=== PATIENT | male | born 1970 | race Caucasian/White ===

== ENCOUNTER 2016-04-23 14:16 | Inpatient (IN) | payer MEDICAID, OTHER ==
[2016-04-23 14:23] VITALS: BMI 30.7
[2016-04-23 15:22] LABS: BASO # 0.1 K/uL (0.0-0.2); EOS # 0.1 K/uL (0.0-0.7); EOS % 1.1 % (0.0-4.0); HEMATOCRIT 37.1 % (35.0-51.0); LYMPH # 1.7 K/uL (1.0-4.3); LYMPH % 14.1 % (20.0-40.0); MEAN CELL VOLUME 89.7 fL (80.0-94.0); MEAN CORPUSCULAR HEMOGLOBIN 30.1 pg (27.0-31.0); MEAN CORPUSCULAR HGB CONC 33.6 g/dL (33.0-37.0); MEAN PLATELET VOLUME 7.2 fL (7.2-11.7); MONO # 0.7 K/uL (0.0-0.8); MONO % 5.7 % (0.0-10.0); RED CELL DISTRIBUTION WIDTH 13.3 % (11.5-14.5); WHITE BLOOD COUNT 11.8 K/uL (4.8-10.8)
[2016-04-23 15:32] LABS: CHLORIDE 102 mmol/L (98-107); POTASSIUM 3.8 mmol/L (3.6-5.2); RBC URINE 3 /hpf (0-3); SODIUM 141 mmol/L (132-148); URINE BILIRUBIN NEGATIVE (NEGATIVE); URINE BLOOD NEGATIVE (NEGATIVE); URINE COLOR Amber (YELLOW); URINE GLUCOSE (UA) NORMAL (Normal); URINE KETONE TRACE mg/dL (NEGATIVE); URINE LEUKOCYTE ESTERASE NEG Leu/uL (Negative); URINE PROTEIN 1+ mg/dL (NEGATIVE); WBC URINE 3 /hpf (0-5)
[2016-04-23 15:34] LABS: GFR AFRICAN-AMERICAN > 60
[2016-04-23 15:35] LABS: ALB/GLOB RATIO 0.9 (1.0-2.1); ALKALINE PHOSPHATASE 99 U/L (38-126); ALT/SGPT 33 U/L (21-72); AST/SGOT 25 U/L (17-59); BILIRUBIN,TOTAL 0.5 mg/dL (0.2-1.3); BLOOD UREA NITROGEN 11 mg/dL (9-20); CALCIUM 8.9 mg/dl (8.6-10.4); CARBON DIOXIDE 24 mmol/L (22-30); GLUCOSE,RANDOM 96 mg/dL (75-110); TOTAL PROTEIN 7.8 g/dL (6.3-8.3)
[2016-04-23 15:36] LABS: ALCOHOL SERUM < 10 mg/dl (0-10)
--- NOTE | 2016-04-23 16:27 | C.PDOC ---
History Of Present Illness 45 year old patient, with a history of asthma, presents to the emergency department complaining of suicidal ideation. Patient is an opiate dependent. He went to [facility], yesterday by his own choice. Patient is trying to quit Heroin. He states he is in current withdrawal. Patient complains of nausea, body aches, headache, and chills. Patient states he has "no plan right now" to kill himself. He has a history of cutting himself. He has made no serious attempts to hurt himself. Patient denies any fever, shortness of breath, chest pain, or vomiting. Time Seen by Provider: 04/23/16 14:44 Chief Complaint (Nursing): Psychiatric Evaluation History Per: Patient History/Exam Limitations: no limitations Onset/Duration Of Symptoms: Days (1) Current Symptoms Are (Timing): Still Present Suicide/Self Injury Attempted (Context): None Modifying Factor(s): None Severity: None Pain Scale Rating Of: 0 Associated Symptoms: Depression, Suicidal Thoughts Involuntary Hold By: None Recent travel outside of the [place]: No Past Medical History Reviewed: Historical Data, Nursing Documentation, Vital Signs Vital Signs: Last Vital Signs Temp 99.1 F 04/23/16 14:26 Pulse 92 H 04/23/16 14:26 Resp 18 04/23/16 14:26 BP 145/95 H 04/23/16 14:26 Pulse Ox 98 04/23/16 16:51 - Medical History PMH: Asthma, Pneumonia (''Walking'') Surgical History: Appendectomy Family History: States: Unknown Family Hx - Social History Hx Alcohol Use: No Hx Substance Use: Yes - Immunization History Hx Tetanus Toxoid Vaccination: No Hx Influenza Vaccination: Yes (2016) Hx Pneumococcal Vaccination: No Review Of Systems Except As Marked, All Systems Reviewed And Found Negative. Constitutional: Positive for: Chills, Other (body aches). Negative for: Fever Cardiovascular: Negative for: Chest Pain Respiratory: Negative for: Shortness of Breath Gastrointestinal: Positive for: Nausea. Negative for: Vomiting Neurological: Positive for: Headache Psych: Positive for: Suicidal ideation Physical Exam - Physical Exam Appears: Non-toxic, No Acute Distress Skin: Warm, Dry Head: Atraumatic, Normacephalic Eye(s): bilateral: Normal Inspection, PERRL, EOMI Ear(s): Bilateral: Normal Nose: Normal Oral Mucosa: Moist Throat: Normal Neck: Normal ROM, Supple Chest: Symmetrical Cardiovascular: Rhythm Regular Respiratory: Normal Breath Sounds, No Rales, No Rhonchi, No Wheezing Gastrointestinal/Abdominal: Soft, No Tenderness, No Guarding, No Rebound Back: Normal Inspection, No CVA Tenderness Extremity: Normal ROM Neurological/Psych: Oriented x3, Normal Speech, Normal Cognition Gait: Steady ED Course And Treatment - Laboratory Results Result Diagrams: 04/23/16 15:15 04/23/16 15:15 O2 Sat by Pulse Oximetry: 98 (RA) Pulse Ox Interpretation: Normal Progress Note: Plan: Labs. -Reassess and disposition Disposition Counseled Patient/Family Regarding: Studies Performed, Diagnosis - Disposition Disposition: HOSPITALIZED Disposition Time: 17:17 Condition: GUARDED - Clinical Impression Clinical Impression: Moderate major depression, single episode, Opioid abuse - Scribe Statement The provider has reviewed the documentation as recorded by the Scribe Nolvia Reyes Provider Attestation: All medical record entries made by the Scribe were at my direction and personally dictated by me. I have reviewed the chart and agree that the record accurately reflects my personal performance of the history, physical exam, medical decision making, and the department course for this patient. I have also personally directed, reviewed, and agree with the discharge instructions and disposition. Decision To Admit - Pt Status Changed To: Hospital Disposition Of: Inpatient - Admit Certification Admit to Inpatient:: After my assessment, the patient will require hospitalization for at least two midnights. This is because of the severity of symptoms shown, intensity of services needed, and/or the medical risk in this patient being treated as an outpatient. - InPatient: Physician Admission Certification: I certify that this patient requires 2 or more midnights of care for the following reason:: suicidal - . Bed Request Type: Psychiatry Patient Diagnosis: Moderate major depression, single episode, Opioid abuse
[2016-04-24] MEDS: Magnesium Hydroxide Susp 30 ml UD PO SCH ×2 (09:43→17:28)
[2016-04-24] MEDS: buPROPion 150 mg/24 Hours XL Tab PO SCH (10:40)
--- NOTE | 2016-04-24 12:47 | PCM.PSYCH ---
Initial Psychiatric Evaluation - Initial Psychiatric Evaluation Type of Admission: Voluntary Legal Status: Capacity History of Present Illness and Precipitating Events: This is a 45 years old male who is currently living with his girlfriend , and currently working was admitted yesterday because of depressed mood, auditory hallucinations, opiate abuse and suicidal ideation with plan to overdose. Patient reports a long history of abusing heroin. Patient has been admitted few times in the psychiatric hospitals. He was discharged from [facility] last year, with [facility] As per the patient couple months ago he stopped taking medication and relapsed on heroin. He started injecting 10-12 bags on a daily basis. Day before yesterday he injected almost 10 bags of heroin , became increasingly depressed and developed suicidal ideation so he came to the hospital. Patient reports of increasingly depressed mood, at times feelings of hopelessness and helplessness, poor sleep and poor appetite. He also reports at times irritability, and agitation. Patient reports auditory hallucinations, telling him to end it all and to kill himself. Patient reports of persecutory delusions that someone is following him, however he denies any visual hallucinations. Patient reports withdrawal symptoms from heroin including hot and cold sweats, abdominal cramps, anxiety, headaches and nausea. He denies drinking or any other substance abuse. Medical history Asthma Current Medications: Active Medications Generic Name Dose Route Start Last Admin Trade Name Freq PRN Reason Stop Dose Admin Benztropine Mesylate 1 mg 04/23/16 18:33 04/23/16 19:50 Cogentin PO 1 mg Q6 PRN Administration EPS Bupropion HCl 150 mg 04/24/16 10:00 04/24/16 10:40 Wellbutrin Xl PO 150 mg DAILY GUMARO Administration Haloperidol 5 mg 04/23/16 18:33 04/23/16 19:50 Haldol PO 5 mg Q6 PRN Administration Agitation Hydroxyzine HCl 50 mg 04/23/16 18:33 04/24/16 11:09 Atarax PO 50 mg Q6 PRN Administration Anxiety Ibuprofen 600 mg 04/23/16 18:33 Motrin Tab PO Q6 PRN Pain, moderate (4-7) Magnesium Hydroxide 30 ml 04/23/16 20:30 04/24/16 09:43 Milk Of Magnesia PO 04/25/16 20:31 Not Given BID GUMARO Methadone HCl 10 mg 04/25/16 10:00 Methadone PO 04/27/16 09:59 DAILY GUMARO Taper Nicotine 1 patch 04/24/16 10:00 04/24/16 09:45 Nicoderm Cq TD 1 patch DAILY GUMARO Administration Ondansetron HCl 4 mg 04/23/16 20:25 Zofran Tab PO Q8 PRN Nausea/Vomiting Trazodone HCl 50 mg 04/23/16 18:33 04/23/16 21:05 Desyrel PO 50 mg HS PRN Administration Insomnia Past Psychiatric History - Past Psychiatric History Previous Treatment History: Inpatient Pertinent Medical Hx (Current Medical&Sleep Prob, Allergies): Allergies Allergy/AdvReac Type Severity Reaction Status Date / Time No Known Allergies Allergy Verified 04/23/16 14:23 buPROPion XL [Wellbutrin] 150 mg PO DAILY 04/23/16 Review of Systems - Review of Systems All systems: reviewed and no additional remarkable complaints except - Psychiatric Psychiatric: Anxiety, Irritability, Suicidal Ideation Mental Status Examination - Personal Presentation Personal Presentation: Looks stated age - Affect Affect: Constricted, Depressed - Motor Activity Motor Activity: Calm - Reliability in Providing Information Reliability in Providing Information: Good - Speech Speech: Organized - Mood Mood: Depressed, Anxious - Formal Thought Process Formal Thought Process: No Impairment - Obsessions/Compulsions Obsessions: No Compulsions: No - Cognitive Functions Orientation: Person, Place, Situation, Time Sensorium: Alert Attention/Concentration: Attentive Abstract Thinking: [place] Estimate of Intelligence: Below average Judgement: Imparied, as evidence by: Poor judgement, Imparied, as evidence by: Lack of insight into illness - Risk Risk: Suicidal, Withdrawal, Diminished functioning - Strength & Assets Inventory Strength & Assets Inventory: Cooperative - Limitations Limitations: Living alone DSM 5 DX - DSM 5 DSM 5 Diagnosis: Major depressive disorder recurrent severe with psychotic features CBT Psychoeducation Supportive therapy, individual therapy Start Zoloft 50 mg PO daily Start Trazodone 50 mg PO Q HS Opioid use disorder severe CBT Psychoeducation Supportive therapy, individual therapy Use DC for abstinence Opioid withdrawal CBT Psychoeducation Supportive therapy, individual therapy Clonidine when necessary Start Subutex when scoring - Recommended/Plan of Treatment Treatment Recommendations and Plan of Treatment: Major depressive disorder recurrent severe with psychotic features CBT Psychoeducation Supportive therapy, individual therapy Start Zoloft 50 mg PO daily Start Trazodone 50 mg PO Q HS Opioid use disorder severe CBT Psychoeducation Supportive therapy, individual therapy Use DC for abstinence Opioid withdrawal CBT Psychoeducation Supportive therapy, individual therapy Clonidine when necessary Start Subutex when scoring Asthma Monitor signs and symptoms Continue prescribed medications
[2016-04-24 20:18] LABS: BASO # 0.1 K/uL (0.0-0.2); BASO % 0.8 % (0.0-2.0); EOS # 0.4 K/uL (0.0-0.7); EOS % 4.1 % (0.0-4.0); LYMPH # 3.3 K/uL (1.0-4.3); LYMPH % 33.8 % (20.0-40.0); MEAN CORPUSCULAR HEMOGLOBIN 30.9 pg (27.0-31.0); MEAN CORPUSCULAR HGB CONC 34.4 g/dL (33.0-37.0); MEAN PLATELET VOLUME 7.1 fL (7.2-11.7); MONO # 0.8 K/uL (0.0-0.8); MONO % 8.5 % (0.0-10.0); RED CELL DISTRIBUTION WIDTH 13.7 % (11.5-14.5); WHITE BLOOD COUNT 9.7 K/uL (4.8-10.8)
[2016-04-24] MEDS: Albuterol HFA 90 mcg/actuation (8 g) INH PRN (21:56)
[2016-04-24] MEDS ORDERED: Alum-Mag Hydrox-Simethicone Susp (30 mL) PO PRN (22:20)
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
[2016-04-25] MEDS: Magnesium Hydroxide Susp 30 ml UD PO SCH ×2 (09:52→17:53)
[2016-04-25] MEDS: POLYETHYLENE GLYCOL 3350 17 GM/Dose PACKET PO SCH (09:52)
[2016-04-25] MEDS: buPROPion 150 mg/24 Hours XL Tab PO SCH (09:57)
[2016-04-25] MEDS: Pantoprazole 20 mg EC Tab PO SCH (09:57)
[2016-04-25] MEDS: Albuterol HFA 90 mcg/actuation (8 g) INH PRN (14:30)
--- NOTE | 2016-04-25 15:35 | PCM.PYCHPN ---
Psychiatric Progress Note - Psychiatric Progress Note Patient seen today, length of contact: 17 min Patient Chief Complaint: I'm feeling very depressed Problems Identified/Issues Discussed: Patient seen and evaluated, chart reviewed and discussed with the nurse. As per the staff, patient still appears isolated, depressed and withdrawn. Patient still reports depressed mood and reports at times feelings of hopelessness or helplessness. He reports withdrawal symptoms including cramps, back pain and sweating. He also reports of hearing voices and seeing things. He is taking medication and denies any side effects. Supportive therapy and psychoeducation were given. Medication Change: Yes (start Haldol) Medical Record Reviewed: Yes Mental Status Examination - Cognitive Function Orientation: Person, Place, Situation, Time Memory: Intact Attention: WNL Concentration: Poor Association: Loose Fund of Knowledge: WNL - Mood Mood: Depressed, Anxious - Affect Affect: Constricted, Depressed - Speech Speech: Soft - Formal Thought Process Formal Thought Process: Hallucinations, Delusions, Paranoia, Loosening of associations - Suicidal Ideation Suicidal Ideation: No - Homicidal Ideation Homicidal Ideation: No Goal/Treatment Plan - Goal/Treatment Plan Need for Continued Stay: Discharge may exacerbated symptoms, Severe functional impairment Progress Toward Problem(s) and Goals/Treatment Plan: Major depressive disorder recurrent severe with psychotic features CBT Psychoeducation Supportive therapy, individual therapy D/C Zoloft 50 mg PO daily Trazodone 50 mg PO Q HS start Wellbutrin Opioid use disorder severe CBT Psychoeducation Supportive therapy, individual therapy Use DC for abstinence Opioid withdrawal CBT Psychoeducation Supportive therapy, individual therapy Clonidine when necessary Methadone taper Asthma Monitor signs and symptoms Continue prescribed medications - Smoking Cessation Smoking Cessation Initiated: No
--- NOTE | 2016-04-25 15:47 | CP.PCM.PN ---
Addendum entered and electronically signed by Suzanna Mojica DO 04/25/16 15:53: Lidoderm patch ordered PRN for pain. Original Note: <Suzanna Mojica - Last Filed: 04/25/16 15:44> Subjective - Date & Time of Evaluation Date of Evaluation: 04/25/16 Time of Evaluation: 10:30 - Subjective Subjective: Internal medicine progress note for Dr. Poole-Suzanna Mojica, PGY-1 Pt S & E at bedside. Pt reports last BM w/o blood, states that he has occasional blood in stool- does not eat high fiber diet, has not been seen by a dr for this problem before. Has a burning sensation when moving bowels, some abdominal discomfort, poor appetite, often has hard stools, occasionally sees drops of red blood in toilet bowel. Reports intermittent sleep - currently detoxing from heroin. Denies N/V/F/C, CP, SOB, straining to stool. Objective - Vital Signs/Intake and Output Vital Signs (last 24 hours): Temp Pulse Resp BP Pulse Ox 97.9 F 62 18 91/59 L 100 04/25/16 08:29 04/25/16 08:29 04/25/16 08:29 04/25/16 08:29 04/23/16 18:26 - Medications Medications: Current Medications Al Hydrox/Mg Hydrox/Simethicone (Maalox Plus 30 Ml) 30 ml PO BID PRN PRN Reason: Indigestion / Heartburn Albuterol (Ventolin Hfa 90 Mcg/Actuation (8 G)) 1 puff INH RQ6 PRN PRN Reason: Shortness of Breath Last Admin: 04/25/16 14:30 Dose: 1 puff Benztropine Mesylate (Cogentin) 1 mg PO Q6 PRN PRN Reason: EPS Last Admin: 04/23/16 19:50 Dose: 1 mg Bupropion HCl (Wellbutrin Xl) 150 mg PO DAILY [facility] Last Admin: 04/25/16 09:57 Dose: 150 mg Docusate Sodium (Colace) 100 mg PO BID [facility] Last Admin: 04/25/16 09:57 Dose: 100 mg Haloperidol (Haldol) 5 mg PO Q6 PRN PRN Reason: Agitation Last Admin: 04/23/16 19:50 Dose: 5 mg Hydroxyzine HCl (Atarax) 50 mg PO Q6 PRN PRN Reason: Anxiety Last Admin: 04/25/16 14:30 Dose: 50 mg Lorazepam (Ativan) 1 mg PO Q8H PRN PRN Reason: Anxiety Last Admin: 04/24/16 21:38 Dose: 1 mg Magnesium Hydroxide (Milk Of Magnesia) 30 ml PO BID [facility] Stop: 04/25/16 20:31 Last Admin: 04/25/16 09:52 Dose: Not Given Methadone HCl (Methadone) 10 mg PO DAILY [facility] PRN Reason: Taper Stop: 04/27/16 09:59 Last Admin: 04/25/16 09:57 Dose: 10 mg Methadone HCl (Methadone) 5 mg PO DAILY PRN PRN Reason: Opiate reversal Stop: 04/26/16 10:00 Nicotine (Nicoderm Cq) 1 patch TD DAILY [facility] Last Admin: 04/25/16 09:57 Dose: 1 patch Ondansetron HCl (Zofran Tab) 4 mg PO Q8 PRN PRN Reason: Nausea/Vomiting Pantoprazole Sodium (Protonix Ec Tab) 20 mg PO DAILY [facility] Last Admin: 04/25/16 09:57 Dose: 20 mg Polyethylene Glycol (Miralax) 17 gm PO DAILY [facility] Last Admin: 04/25/16 09:52 Dose: Not Given Trazodone HCl (Desyrel) 50 mg PO HS PRN PRN Reason: Insomnia Last Admin: 04/24/16 21:25 Dose: 50 mg - Labs Labs: 04/24/16 19:58 - Constitutional Appears: Non-toxic, No Acute Distress - Head Exam Head Exam: ATRAUMATIC, NORMAL INSPECTION, NORMOCEPHALIC - Eye Exam Eye Exam: EOMI, Normal appearance, PERRL Pupil Exam: NORMAL ACCOMODATION, PERRL - ENT Exam ENT Exam: Mucous Membranes Moist, Normal Exam - Neck Exam Neck Exam: Full ROM, Normal Inspection - Respiratory Exam Respiratory Exam: Clear to Ausculation Bilateral, NORMAL BREATHING PATTERN - Cardiovascular Exam Cardiovascular Exam: REGULAR RHYTHM, +S1, +S2 - Rectal Exam Rectal Exam: Deferred Additional comments: Patient declined DANILO - Extremities Exam Extremities Exam: Full ROM, Normal Inspection - Back Exam Back Exam: Full ROM, NORMAL INSPECTION - Neurological Exam Neurological Exam: Alert, Awake, Oriented x3 - Psychiatric Exam Psychiatric exam: Normal Affect, Normal Mood - Skin Skin Exam: Dry, Intact, Normal Color, Warm Assessment and Plan - Assessment and Plan (Free Text) Assessment: 1. Rectal Bleeding - Hemoglobin 12.4 - stable - Platelets 542 - Recommend d/c Ibuprofen for pain management - Continue pain management per psychiatry as patient being treated in detox for heroine abuse - Malaax 30 ml BID - Protonix 20 mg po daily - Avoid NSAIDS or other medications that can cause GI bleeding - GI consulted 2. Constipation -Continue Colace 100 mg po BID -Continue Miralax po daily 3. Heroine Abuse -Continue management per psychiatry 4. Dispo -Pt refusing DANILO -Mgmt as per psych & GI -No further medical mgmt as this time Please re-consult as needed Thank you for this consult DW attending <Luigi Poole - Last Filed: 04/25/16 16:39> Objective - Vital Signs/Intake and Output Vital Signs (last 24 hours): Temp Pulse Resp BP Pulse Ox 97.9 F 93 H 18 127/87 100 04/25/16 08:29 04/25/16 15:46 04/25/16 08:29 04/25/16 15:46 04/23/16 18:26 - Medications Medications: Current Medications Al Hydrox/Mg Hydrox/Simethicone (Maalox Plus 30 Ml) 30 ml PO BID PRN PRN Reason: Indigestion / Heartburn Albuterol (Ventolin Hfa 90 Mcg/Actuation (8 G)) 1 puff INH RQ6 PRN PRN Reason: Shortness of Breath Last Admin: 04/25/16 14:30 Dose: 1 puff Benztropine Mesylate (Cogentin) 1 mg PO Q6 PRN PRN Reason: EPS Last Admin: 04/23/16 19:50 Dose: 1 mg Bupropion HCl (Wellbutrin Xl) 150 mg PO DAILY [facility] Last Admin: 04/25/16 09:57 Dose: 150 mg Docusate Sodium (Colace) 100 mg PO BID [facility] Last Admin: 04/25/16 09:57 Dose: 100 mg Haloperidol (Haldol) 5 mg PO Q6 PRN PRN Reason: Agitation Last Admin: 04/23/16 19:50 Dose: 5 mg Hydroxyzine HCl (Atarax) 50 mg PO Q6 PRN PRN Reason: Anxiety Last Admin: 04/25/16 14:30 Dose: 50 mg Lidocaine (Lidoderm) 1 ea TD DAILY PRN PRN Reason: Pain, moderate (4-7) Lorazepam (Ativan) 1 mg PO Q8H PRN PRN Reason: Anxiety Last Admin: 04/24/16 21:38 Dose: 1 mg Magnesium Hydroxide (Milk Of Magnesia) 30 ml PO BID [facility] Stop: 04/25/16 20:31 Last Admin: 04/25/16 09:52 Dose: Not Given Methadone HCl (Methadone) 10 mg PO DAILY [facility] PRN Reason: Taper Stop: 04/27/16 09:59 Last Admin: 04/25/16 09:57 Dose: 10 mg Methadone HCl (Methadone) 5 mg PO DAILY PRN PRN Reason: Opiate reversal Stop: 04/26/16 10:00 Nicotine (Nicoderm Cq) 1 patch TD DAILY [facility] Last Admin: 04/25/16 09:57 Dose: 1 patch Ondansetron HCl (Zofran Tab) 4 mg PO Q8 PRN PRN Reason: Nausea/Vomiting Pantoprazole Sodium (Protonix Ec Tab) 20 mg PO DAILY [facility] Last Admin: 04/25/16 09:57 Dose: 20 mg Polyethylene Glycol (Miralax) 17 gm PO DAILY [facility] Last Admin: 04/25/16 09:52 Dose: Not Given Trazodone HCl (Desyrel) 50 mg PO HS PRN PRN Reason: Insomnia Last Admin: 04/24/16 21:25 Dose: 50 mg - Labs Labs: 04/24/16 19:58 Attending/Attestation - Attestation I have personally seen and examined this patient.: Yes I have fully participated in the care of the patient.: Yes I have reviewed all pertinent clinical information, including history, physical exam and plan: Yes Notes (Text): 04/25/16 16:36 Medical Attending: Patient was seen and examined by me. Agree with the above note by the resident. The patient is ambulating in 5E without assistance. The Hgb was also stable as well. He is currently undergoing detox at this time. He reports still having some abdominal pain, possibly from the withdrawl and the process of detox. I explained this to the patient. Will add lidoderm transdermal patch. Avoidng NSAIDs at this time thank you Luigi Poole
[2016-04-25] MEDS: Lidocaine 5% Patch TD PRN (16:52)
[2016-04-26 08:02] LABS: BASO % 0.5 % (0.0-2.0); EOS # 0.4 K/uL (0.0-0.7); EOS % 5.2 % (0.0-4.0); HEMATOCRIT 36.3 % (35.0-51.0); LYMPH # 3.1 K/uL (1.0-4.3); LYMPH % 38.1 % (20.0-40.0); MEAN CELL VOLUME 90.2 fL (80.0-94.0); MEAN CORPUSCULAR HGB CONC 33.3 g/dL (33.0-37.0); MEAN PLATELET VOLUME 7.2 fL (7.2-11.7); MONO # 0.7 K/uL (0.0-0.8); MONO % 8.2 % (0.0-10.0); RED CELL DISTRIBUTION WIDTH 13.5 % (11.5-14.5); WHITE BLOOD COUNT 8.2 K/uL (4.8-10.8)
[2016-04-26] MEDS: Pantoprazole 20 mg EC Tab PO SCH (10:29)
[2016-04-26] MEDS: buPROPion 150 mg/24 Hours XL Tab PO SCH (10:29)
[2016-04-26] MEDS: POLYETHYLENE GLYCOL 3350 17 GM/Dose PACKET PO SCH (10:30)
--- NOTE | 2016-04-26 14:42 | PCM.PYCHPN ---
Psychiatric Progress Note - Psychiatric Progress Note Patient seen today, length of contact: 15 min Patient Chief Complaint: I am feeling depressed Problems Identified/Issues Discussed: Patient seen and evaluated, chart reviewed and discussed with the nurse. As per the staff, patient still appears isolated, depressed and withdrawn. Patient still reports depressed mood and reports at times feelings of hopelessness or helplessness. He reports withdrawal symptoms including cramps, back pain and sweating. However he denies any suicidal ideation or homicidal ideation. He is asking for more pain medications is medical diagnoses and surgeries. He denies any auditory or visual hallucinations or any psychotic symptoms. Supportive therapy and psychoeducation were given. Medication Change: Yes (start Wellbutrin) Medical Record Reviewed: Yes Mental Status Examination - Cognitive Function Orientation: Person, Place, Situation, Time Memory: Intact Attention: WNL Concentration: Poor Association: Loose Fund of Knowledge: WNL - Mood Mood: Depressed, Anxious - Affect Affect: Constricted, Depressed - Speech Speech: Soft - Formal Thought Process Formal Thought Process: Hallucinations, Delusions, Loosening of associations - Suicidal Ideation Suicidal Ideation: No - Homicidal Ideation Homicidal Ideation: No Goal/Treatment Plan - Goal/Treatment Plan Need for Continued Stay: Discharge may exacerbated symptoms, Severe functional impairment Progress Toward Problem(s) and Goals/Treatment Plan: Major depressive disorder recurrent severe with psychotic features CBT Psychoeducation Supportive therapy, individual therapy D/C Zoloft 50 mg PO daily Welbutrin 150 mg PO Daily Haldol 5 mg PO BID Trazodone 50 mg PO Q HS Opioid use disorder severe CBT Psychoeducation Supportive therapy, individual therapy Use [place] for abstinence Opioid withdrawal CBT Psychoeducation Supportive therapy, individual therapy Clonidine when necessary Subutex when scoring Asthma Monitor signs and symptoms Continue prescribed medications - Smoking Cessation Smoking Cessation Initiated: No
[2016-04-26] MEDS: Lidocaine 5% Patch TD PRN (18:33)
[2016-04-27] MEDS: buPROPion 150 mg/24 Hours XL Tab PO SCH (10:23)
[2016-04-27] MEDS: POLYETHYLENE GLYCOL 3350 17 GM/Dose PACKET PO SCH (12:51)
[2016-04-27] MEDS: Pantoprazole 20 mg EC Tab PO SCH (12:51)
--- NOTE | 2016-04-27 14:49 | PCM.PYCHPN ---
Psychiatric Progress Note - Psychiatric Progress Note Patient seen today, length of contact: 17 min Patient Chief Complaint: I'm feeling little better Problems Identified/Issues Discussed: Patient seen and evaluated, chart reviewed and discussed with the nurse. Patient reports improvement in his mood but still reports withdrawal symptoms including cramps, back pain and sweating. He reports adequate improvement in irritability and agitation and voices. He is taking medication and denies any side effects. Supportive therapy and psychoeducation were given. Medication Change: No Medical Record Reviewed: Yes Mental Status Examination - Cognitive Function Orientation: Person, Place, Situation, Time Memory: Intact Attention: WNL Concentration: Poor Association: Loose Fund of Knowledge: WNL (attacks) - Mood Mood: Depressed, Anxious - Affect Affect: Constricted, Depressed - Formal Thought Process Formal Thought Process: Hallucinations, Delusions - Suicidal Ideation Suicidal Ideation: No - Homicidal Ideation Homicidal Ideation: No Goal/Treatment Plan - Goal/Treatment Plan Need for Continued Stay: Discharge may exacerbated symptoms, Severe functional impairment Progress Toward Problem(s) and Goals/Treatment Plan: Major depressive disorder recurrent severe with psychotic features CBT Psychoeducation Supportive therapy, individual therapy Welbutrin 300 mg PO Daily Haldol 5 mg PO BID Trazodone 50 mg PO Q HS Gabapentin 100 mg by mouth 3 times a day Opioid use disorder severe CBT Psychoeducation Supportive therapy, individual therapy Use [place] for abstinence Opioid withdrawal CBT Psychoeducation Supportive therapy, individual therapy Clonidine when necessary Methadone taper Asthma Monitor signs and symptoms Continue prescribed medications - Smoking Cessation Smoking Cessation Initiated: Yes
[2016-04-27] MEDS: Albuterol HFA 90 mcg/actuation (8 g) INH PRN (21:08)
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
[2016-04-28] MEDS: POLYETHYLENE GLYCOL 3350 17 GM/Dose PACKET PO SCH (10:32)
[2016-04-28] MEDS: buPROPion 150 mg/24 Hours XL Tab PO SCH (10:36)
[2016-04-28] MEDS: Pantoprazole 20 mg EC Tab PO SCH (10:36)
--- NOTE | 2016-04-28 11:19 | PCM.PYCHPN ---
Psychiatric Progress Note - Psychiatric Progress Note Patient seen today, length of contact: 17 min Patient Chief Complaint: I'm still feeling anxious Problems Identified/Issues Discussed: Patient seen and evaluated, chart reviewed and discussed with the nurse. Patient reports improvement in his depression, irritability and agitation. He still reports of auditory hallucinations and persecutory delusions. He reports improvement in the withdrawal symptoms but still reports anxiety, headaches and sweating. However he remains calm and cooperative. He is taking medication and denies any side effects. Supportive therapy and psychoeducation were given Medication Change: Yes (increase welbutrin) Medical Record Reviewed: Yes Mental Status Examination - Cognitive Function Orientation: Person, Place, Situation, Time Memory: Intact Attention: WNL Concentration: Poor Association: Loose Fund of Knowledge: WNL - Mood Mood: Depressed, Anxious - Affect Affect: Constricted, Depressed - Speech Speech: Soft - Formal Thought Process Formal Thought Process: Hallucinations, Delusions, Loosening of associations - Suicidal Ideation Suicidal Ideation: No - Homicidal Ideation Homicidal Ideation: No Goal/Treatment Plan - Goal/Treatment Plan Need for Continued Stay: Discharge may exacerbated symptoms, Severe functional impairment Progress Toward Problem(s) and Goals/Treatment Plan: Major depressive disorder recurrent severe with psychotic features CBT Psychoeducation Supportive therapy, individual therapy Neurontin 300 mg by mouth 3 times a day Trazodone 50 mg PO Q HS Increase Wellbutrin to 300 mg by mouth daily Continue Haldol 5 mg daily Increase Haldol to 10 mg by mouth daily at bedtime Opioid use disorder severe CBT Psychoeducation Supportive therapy, individual therapy Use [place] for abstinence Opioid withdrawal CBT Psychoeducation Supportive therapy, individual therapy Clonidine when necessary Start Subutex when scoring Asthma Monitor signs and symptoms Continue prescribed medications - Smoking Cessation Smoking Cessation Initiated: Yes
[2016-04-28] MEDS: Albuterol HFA 90 mcg/actuation (8 g) INH PRN (18:55)
[2016-04-29] MEDS: POLYETHYLENE GLYCOL 3350 17 GM/Dose PACKET PO SCH (09:35)
[2016-04-29] MEDS: buPROPion 150 mg/24 Hours XL Tab PO SCH (09:38)
[2016-04-29] MEDS: Pantoprazole 20 mg EC Tab PO SCH (09:39)
[2016-04-30] MEDS: POLYETHYLENE GLYCOL 3350 17 GM/Dose PACKET PO SCH (09:24)
[2016-04-30] MEDS: Pantoprazole 20 mg EC Tab PO SCH (09:28)
[2016-04-30] MEDS: buPROPion 150 mg/24 Hours XL Tab PO SCH (09:28)
[2016-04-30] MEDS ORDERED: Bisacodyl 5mg EC Tab PO ONE (17:00)
[2016-04-30] MEDS ORDERED: Peg-Electrolyte Oral Soln 4L (Golytely) PO ONE (19:00)
--- NOTE | 2016-05-01 02:05 | PCM.PYCHPN ---
Psychiatric Progress Note - Psychiatric Progress Note Patient seen today, length of contact: 17 MIN Patient Chief Complaint: I FEEL WEAK Problems Identified/Issues Discussed: SYMPTOM MANAGEMENT Medical Problems: RECTAL BLEEDING Diagnostic Results: REVIEWED Medication Change: No Medical Record Reviewed: Yes Consults ordered or reviewed: GI CONSULT REVIEWED PT TO HAVE COLONOSCOPY Mental Status Examination - Cognitive Function Orientation: Person, Situation, Time Memory: Intact Attention: WNL Concentration: Poor Association: WNL Fund of Knowledge: WNL - Mood Mood: Anxious - Affect Affect: Constricted, Depressed - Speech Speech: Soft - Formal Thought Process Formal Thought Process: Hallucinations, Delusions, Loosening of associations - Suicidal Ideation Suicidal Ideation: No - Homicidal Ideation Homicidal Ideation: No Goal/Treatment Plan - Goal/Treatment Plan Need for Continued Stay: Remain at risks for inpatient hospitalization, Discharge may exacerbated symptoms, Severe functional impairment Progress Toward Problem(s) and Goals/Treatment Plan: SCHIZOPHRENIA ALCOHOL USE DISORDER ALCOHOL WITHDRAWAL RECTAL BLEEDING SCHIZOPHRENIA HALDOL TRAZODONE COGENTIN GROUPS ID CBT SUPPORTIVE PSYCHOTHERAPY ALCOHOL USE DISORDER CBT ID GROUPS ALCOHOL WITHDRAWAL LIBRIUM RECTAL BLEEDING COLONOSCOPY Estimated Date of D/C: 05/06/16 - Smoking Cessation Smoking Cessation Initiated: No
--- NOTE | 2016-05-01 02:14 | PCM.PYCHPN ---
Psychiatric Progress Note - Psychiatric Progress Note Patient seen today, length of contact: 17 MIN Patient Chief Complaint: I WANT TO KNOW WHY I AM BLEEDING! Problems Identified/Issues Discussed: PAWS REASON FOR RECTAL BLEEDING Medical Problems: RECTAL BLEEDING Diagnostic Results: REVIEWED Medication Change: No Medical Record Reviewed: Yes Consults ordered or reviewed: GI CONSULT REVIEWED PT TO HAVE COLONOSCOPY Mental Status Examination - Cognitive Function Orientation: Person, Place, Situation, Time Memory: Intact Concentration: Poor Association: WNL Fund of Knowledge: WNL - Mood Mood: Anxious - Affect Affect: Constricted, Depressed - Speech Speech: Soft - Formal Thought Process Formal Thought Process: Hallucinations, Paranoia - Suicidal Ideation Suicidal Ideation: No - Homicidal Ideation Homicidal Ideation: No Goal/Treatment Plan - Goal/Treatment Plan Need for Continued Stay: Remain at risks for inpatient hospitalization, Discharge may exacerbated symptoms, Severe functional impairment Progress Toward Problem(s) and Goals/Treatment Plan: SCHIZOPHRENIA ALCOHOL USE DISORDER ALCOHOL WITHDRAWAL RECTAL BLEEDING SCHIZOPHRENIA HALDOL TRAZODONE COGENTIN GROUPS MA CBT SUPPORTIVE PSYCHOTHERAPY ALCOHOL USE DISORDER CBT MA GROUPS ALCOHOL WITHDRAWAL LIBRIUM RECTAL BLEEDING COLONOSCOPY Estimated Date of D/C: 05/06/16 - Smoking Cessation Smoking Cessation Initiated: No
[2016-05-01] MEDS ORDERED: Propofol 10 mg/ml Inj (20 ML) ONE ×2 (10:00)
[2016-05-01] MEDS ORDERED: Lactated Ringer's 500 ML IV ONE (10:03)
[2016-05-01] MEDS ORDERED: Lactated Ringer's 1,000 ML IV SCH (10:15)
--- NOTE | 2016-05-01 10:15 | PCM.SURG1 ---
Surgeon's Initial Post Op Note - Surgeon's Notes Surgeon: Corey Urbano MD Caustic Mixer: none Type of Anesthesia: MAC Anesthesia Administered By: Alvaro Queen Pre-Operative Diagnosis: Lower GI bleeding Operative Findings: No active bleeding; Diverticulosis; internal hemorrhoids Post-Operative Diagnosis: Diverticulosis; internal hemorrhoids Operation Performed: Colonoscopy Specimen/Specimens Removed: None Estimated Blood Loss: EBL {In ML}: 0 Date of Surgery/Procedure: 05/01/16 Time of Surgery/Procedure: 10:15
[2016-05-01] MEDS: buPROPion 150 mg/24 Hours XL Tab PO SCH (11:49)
[2016-05-01] MEDS: Pantoprazole 20 mg EC Tab PO SCH (11:49)
[2016-05-01] MEDS: POLYETHYLENE GLYCOL 3350 17 GM/Dose PACKET PO SCH ×2 (11:50→11:54)
--- NOTE | 2016-05-01 15:41 | PCM.PYCHPN ---
Psychiatric Progress Note - Psychiatric Progress Note Patient seen today, length of contact: 18 min Patient Chief Complaint: I'm feeling Much better Problems Identified/Issues Discussed: Patient seen and evaluated, chart reviewed and discussed with the nurse. Patient reports improvement in his mood and improvement in the voices. He reports improvement in the withdrawal symptoms. patient went for a colonoscopy today and was cleared from the medical team. He is taking medication and denies any side effects. Supportive therapy and psychoeducation were given Medication Change: No Medical Record Reviewed: Yes Mental Status Examination - Cognitive Function Orientation: Person, Place, Situation, Time Memory: Intact Attention: WNL Concentration: WNL Association: WNL Fund of Knowledge: WNL - Mood Mood: Anxious - Affect Affect: Constricted, Depressed - Speech Speech: Soft - Formal Thought Process Formal Thought Process: No Impairment - Suicidal Ideation Suicidal Ideation: No - Homicidal Ideation Homicidal Ideation: No Goal/Treatment Plan - Goal/Treatment Plan Need for Continued Stay: Remain at risks for inpatient hospitalization, Discharge may exacerbated symptoms, Severe functional impairment Progress Toward Problem(s) and Goals/Treatment Plan: Major depressive disorder recurrent severe with psychotic features CBT Psychoeducation Supportive therapy, individual therapy Neurontin 300 mg by mouth 3 times a day Trazodone 50 mg PO Q HS discontinue Wellbutrin 300 mg by mouth daily Continue Haldol 5 mg daily Increase Haldol to 10 mg by mouth daily at bedtime Opioid use disorder severe CBT Psychoeducation Supportive therapy, individual therapy Use [place] for abstinence Opioid withdrawal CBT Psychoeducation Supportive therapy, individual therapy Clonidine when necessary Start Subutex when scoring Asthma Monitor signs and symptoms Continue prescribed medications Estimated Date of D/C: 05/06/16 - Smoking Cessation Smoking Cessation Initiated: No
--- NOTE | 2016-05-01 16:34 | CP.PCM.PN ---
<Henrique Lynne - Last Filed: 05/01/16 16:35> Subjective - Date & Time of Evaluation Date of Evaluation: 05/01/16 Time of Evaluation: 16:29 - Subjective Subjective: PGY-1 note for medicine service Pt seen and examined. he was observed to be walking around the hallways. He had a colonoscopy today to assess his GI bleed. Pt states that he feels well with no more episodes of blood in his stool. Denies any dizziness, chest pain, palpitations, sob, numbness or tingling. Pt did admit to some sob at time but uses his inhaler at home at most 2 times a week. He also admitted to smoking cigarettes. On further questioning, the pt also admitted to IV drug use that he started a couple of months ago. He states that he does not share needles and has had an HIV test in the past which was negative. Objective - Vital Signs/Intake and Output Vital Signs (last 24 hours): Temp Pulse Resp BP Pulse Ox 98 F 84 19 110/71 100 05/01/16 10:48 05/01/16 16:14 05/01/16 10:48 05/01/16 16:14 04/23/16 18:26 - Medications Medications: Current Medications Al Hydrox/Mg Hydrox/Simethicone (Maalox Plus 30 Ml) 30 ml PO BID PRN PRN Reason: Indigestion / Heartburn Albuterol (Ventolin Hfa 90 Mcg/Actuation (8 G)) 1 puff INH RQ6 PRN PRN Reason: Shortness of Breath Last Admin: 04/28/16 18:55 Dose: 1 puff Benztropine Mesylate (Cogentin) 1 mg PO Q6 PRN PRN Reason: EPS Last Admin: 04/29/16 21:11 Dose: 1 mg Benztropine Mesylate (Cogentin) 1 mg PO BID [facility] Last Admin: 05/01/16 11:00 Dose: 1 mg Bupropion HCl (Wellbutrin Xl) 300 mg PO DAILY [facility] Last Admin: 05/01/16 11:49 Dose: 300 mg Gabapentin (Neurontin) 300 mg PO TID [facility] Last Admin: 05/01/16 11:00 Dose: 300 mg Haloperidol (Haldol) 5 mg PO Q6 PRN PRN Reason: Agitation Last Admin: 04/25/16 21:41 Dose: 5 mg Haloperidol (Haldol) 10 mg PO HS [facility] Last Admin: 04/30/16 22:29 Dose: 10 mg Haloperidol (Haldol) 5 mg PO DAILY [facility] Last Admin: 05/01/16 11:48 Dose: 5 mg Hydroxyzine HCl (Atarax) 50 mg PO Q6 PRN PRN Reason: Anxiety Last Admin: 04/26/16 18:32 Dose: 50 mg Lactated Ringer's (Lactated Ringer's) 1,000 mls @ 100 mls/hr IV .Q10H [facility] Ibuprofen (Motrin Tab) 600 mg PO TID PRN PRN Reason: Pain, moderate (4-7) Last Admin: 05/01/16 14:40 Dose: 600 mg Lidocaine (Lidoderm) 1 ea TD DAILY PRN PRN Reason: Pain, moderate (4-7) Last Admin: 04/26/16 18:33 Dose: 1 ea Lorazepam (Ativan) 1 mg PO Q8H PRN PRN Reason: Anxiety Last Admin: 04/29/16 18:23 Dose: 1 mg Nicotine (Nicoderm Cq) 1 patch TD DAILY [facility] Last Admin: 05/01/16 11:48 Dose: 1 patch Ondansetron HCl (Zofran Tab) 4 mg PO Q8 PRN PRN Reason: Nausea/Vomiting Pantoprazole Sodium (Protonix Ec Tab) 20 mg PO DAILY [facility] Last Admin: 05/01/16 11:49 Dose: 20 mg Polyethylene Glycol (Miralax) 17 gm PO DAILY [facility] Last Admin: 05/01/16 11:54 Dose: Not Given Trazodone HCl (Desyrel) 50 mg PO HS PRN PRN Reason: Insomnia Last Admin: 04/30/16 22:29 Dose: 50 mg - Labs Labs: 04/26/16 07:42 - Constitutional Appears: Non-toxic, No Acute Distress - Head Exam Head Exam: ATRAUMATIC, NORMOCEPHALIC - Eye Exam Eye Exam: Normal appearance - ENT Exam ENT Exam: Mucous Membranes Moist - Respiratory Exam Respiratory Exam: Clear to Ausculation Bilateral, NORMAL BREATHING PATTERN - Cardiovascular Exam Cardiovascular Exam: +S1, +S2 - GI/Abdominal Exam GI & Abdominal Exam: Soft, Normal Bowel Sounds - Neurological Exam Neurological Exam: Alert, Awake - Skin Skin Exam: Dry, Warm Assessment and Plan - Assessment and Plan (Free Text) Assessment: Rectal Bleeding - Hemoglobin - stable - No reported blood in stool - Colonoscopy today 05/01 - hemorrhoids and diverticulosis - Recommend d/c Ibuprofen for pain management - GI consulted Heroine Abuse - Pt admitted to IV drug use - Recommend blood work that includes HIV and hepatitis panel - Continue management per psychiatry Dispo -No further medical mgmt as this time DW attending <Jimmy Desai - Last Filed: 05/02/16 00:09> Objective - Vital Signs/Intake and Output Vital Signs (last 24 hours): Temp Pulse Resp BP Pulse Ox 98 F 84 19 110/71 100 05/01/16 10:48 05/01/16 16:14 05/01/16 10:48 05/01/16 16:14 04/23/16 18:26 - Medications Medications: Current Medications Al Hydrox/Mg Hydrox/Simethicone (Maalox Plus 30 Ml) 30 ml PO BID PRN PRN Reason: Indigestion / Heartburn Albuterol (Ventolin Hfa 90 Mcg/Actuation (8 G)) 1 puff INH RQ6 PRN PRN Reason: Shortness of Breath Last Admin: 04/28/16 18:55 Dose: 1 puff Benztropine Mesylate (Cogentin) 1 mg PO Q6 PRN PRN Reason: EPS Last Admin: 04/29/16 21:11 Dose: 1 mg Benztropine Mesylate (Cogentin) 1 mg PO BID [facility] Last Admin: 05/01/16 21:03 Dose: 1 mg Bupropion HCl (Wellbutrin Xl) 300 mg PO DAILY [facility] Last Admin: 05/01/16 11:49 Dose: 300 mg Gabapentin (Neurontin) 300 mg PO TID [facility] Last Admin: 05/01/16 17:10 Dose: 300 mg Haloperidol (Haldol) 5 mg PO Q6 PRN PRN Reason: Agitation Last Admin: 04/25/16 21:41 Dose: 5 mg Haloperidol (Haldol) 10 mg PO HS [facility] Last Admin: 05/01/16 21:03 Dose: 10 mg Haloperidol (Haldol) 5 mg PO DAILY [facility] Last Admin: 05/01/16 11:48 Dose: 5 mg Hydroxyzine HCl (Atarax) 50 mg PO Q6 PRN PRN Reason: Anxiety Last Admin: 05/01/16 16:49 Dose: 50 mg Ibuprofen (Motrin Tab) 600 mg PO TID PRN PRN Reason: Pain, moderate (4-7) Last Admin: 05/01/16 14:40 Dose: 600 mg Lidocaine (Lidoderm) 1 ea TD DAILY PRN PRN Reason: Pain, moderate (4-7) Last Admin: 04/26/16 18:33 Dose: 1 ea Nicotine (Nicoderm Cq) 1 patch TD DAILY [facility] Last Admin: 05/01/16 11:48 Dose: 1 patch Ondansetron HCl (Zofran Tab) 4 mg PO Q8 PRN PRN Reason: Nausea/Vomiting Pantoprazole Sodium (Protonix Ec Tab) 20 mg PO DAILY [facility] Last Admin: 05/01/16 11:49 Dose: 20 mg Polyethylene Glycol (Miralax) 17 gm PO DAILY [facility] Last Admin: 05/01/16 11:54 Dose: Not Given Trazodone HCl (Desyrel) 50 mg PO HS PRN PRN Reason: Insomnia Last Admin: 05/01/16 21:03 Dose: 50 mg - Labs Labs: 04/26/16 07:42 Attending/Attestation - Attestation I have personally seen and examined this patient.: Yes I have fully participated in the care of the patient.: Yes I have reviewed all pertinent clinical information, including history, physical exam and plan: Yes Notes (Text): Patient admitted on [facility] with depression, opiate abuse/withdrawal, underwent colonoscopy after reporting blood per rectum (last seen just before admission about a week ago); Hgb stable while here; colonscopy revealed internal hemorrhoids and a few diverticula; otherwise unremarkable study and with recommendation to repeat in 10 years; Patient revealed to us recent IVDA with heroin, denies sharing needles; will recommend hep B and C testing in addition to HIV; Patient is otherwise stable from medical standpoint; will sign off; please feel free to call us back.
[2016-05-02 07:58] VITALS: BP 116/75; PULSE 64; RESP 20; TEMP 98.1
--- NOTE | 2016-05-02 09:51 | PCM.PYCHDC ---
Mental Status Examination - Mental Status Examination Orientation: Person, Place, Situation, Time Memory: Intact Mood: Neutral Affect: Constricted Speech: Soft Attention: WNL Concentration: WNL Association: WNL Fund of Knowledge: WNL Formal Thought Process: No Impairment Description of patient's judgement and insight: good, fair Psychotic Thoughts and Behaviors: denies any AVH Suicidal Ideation: No Current Homicidal Ideation?: No Discharge Summary - Discharge Note Reason for Hospitalization: This is a 45 years old male who is currently living with his girlfriend , and currently working was admitted yesterday because of depressed mood, auditory hallucinations, opiate abuse and suicidal ideation with plan to overdose. Patient reports a long history of abusing heroin. Patient has been admitted few times in the psychiatric hospitals. He was discharged from [facility] last year, with [facility] As per the patient couple months ago he stopped taking medication and relapsed on heroin. He started injecting 10-12 bags on a daily basis. Day before yesterday he injected almost 10 bags of heroin , became increasingly depressed and developed suicidal ideation so he came to the hospital. Patient reports of increasingly depressed mood, at times feelings of hopelessness and helplessness, poor sleep and poor appetite. He also reports at times irritability, and agitation. Patient reports auditory hallucinations, telling him to end it all and to kill himself. Patient reports of persecutory delusions that someone is following him, however he denies any visual hallucinations. Patient reports withdrawal symptoms from heroin including hot and cold sweats, abdominal cramps, anxiety, headaches and nausea. He denies drinking or any other substance abuse. Consultations:: List each consultation separately and include: 1. Reason for request. 2. Findings. 3. Follow-up Summary of Hospital Course include:: 1. Description of specific treatment plan utilized for patients during their course of treatmen. 2. Summarize the time- course for resolution of acute symptoms and/or regressed behaviors. 3. Describe issues identified and worked on during hospitalization. 4. Describe medication utilized. 5. Describe medical problems identified and treated. 6. Reassessment of suicide risk Summary of Hospital Course: During the course of his stay, patient (pt) started progressively improving and he no longer remained irritable, depressed, suicidal and paranoid. His mood and paranoia were improved and he started attending groups and meetings and started socializing. Patient denied any feelings of hopelessness, helplessness, and worthlessness, denied any problem with the sleep or appetite, denied suicidal ideation or homicidal ideation. Pt denied any auditory or visual hallucinations. Some changes were made in his current medications and patient was discharged on following medications. He tolerated these medications very well and denied any side effects. 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 Pt was educated and counseled about the risks of drinking and abusing drugs. Pt was educated and counseled to go to the ER or call 911 if pt develop suicidal ideation or homicidal ideation, worsening of symptoms or severe side effects of the meds. Prescriptions/Medication Reconciliation: Benztropine [Cogentin] 1 mg PO BID #60 tab traZODone [Desyrel] 50 mg PO HS PRN #30 tab PRN Reason: Insomnia Haloperidol [Haldol] 10 mg PO HS #30 tab Haloperidol [Haldol] 5 mg PO DAILY #30 tab Gabapentin [Neurontin] 300 mg PO TID #90 cap - Smoking Cessation Smoking Cessation Medication prescribed: No - Antipsychotic Medications Pt discharged on 2 or more routine antipsychotic medications: No
[2016-05-02] MEDS: POLYETHYLENE GLYCOL 3350 17 GM/Dose PACKET PO SCH (10:15)
[2016-05-03 15:29] VITALS: O2SAT 100
== END 2016-05-02 14:11 | disposition home or self-care (01) | DRG 430 ==
LOC: C.ER 14:16 → C.9E 17:18 → C.5E 17:39
PROC: GZ3ZZZZ Medication Management (ICD-10-PCS; principal; 2016-04-23)
PROC: HZ59ZZZ Individual Psychotherapy for Substance Abuse Treatment, Supportive (ICD-10-PCS; 2016-04-23)
PROC: HZ89ZZZ Medication Management for Substance Abuse Treatment, Other Replacement Medication (ICD-10-PCS; 2016-04-23)
PROC: GZHZZZZ Group Psychotherapy (ICD-10-PCS; 2016-04-23)
PROC: GZ56ZZZ Individual Psychotherapy, Supportive (ICD-10-PCS; 2016-04-23)
PROC: 0DJD8ZZ Inspection of Lower Intestinal Tract, Via Natural or Artificial Opening Endoscopic (ICD-10-PCS; 2016-05-01)
DX: F31.64 Bipolar disorder, current episode mixed, severe, with psychotic features (principal); R45.851 Suicidal ideations; F11.23 Opioid dependence with withdrawal; K62.5 Hemorrhage of anus and rectum; K64.0 First degree hemorrhoids; K57.30 Diverticulosis of large intestine without perforation or abscess without bleeding; F17.210 Nicotine dependence, cigarettes, uncomplicated; J45.909 Unspecified asthma, uncomplicated; F41.9 Anxiety disorder, unspecified; K59.00 Constipation, unspecified

== ENCOUNTER 2017-08-22 07:56 | Inpatient (IN) | payer MEDICAID, OTHER ==
[2017-08-22 08:02] VITALS: BMI 33.5
[2017-08-22 08:40] LABS: SQUAMOUS EPITHIAL < 1 /hpf (0-5); URINE BILIRUBIN NEGATIVE (NEGATIVE); URINE BLOOD 1+ (NEGATIVE); URINE CALCIUM OXALATE CRYSTALS FEW /hpf (<OCC); URINE CLARITY Clear (Clear); URINE COLOR Amber (YELLOW); URINE GLUCOSE (UA) NORMAL (Normal); URINE LEUKOCYTE ESTERASE NEG Leu/uL (Negative); URINE PROTEIN 1+ mg/dL (NEGATIVE)
[2017-08-22 08:43] LABS: BASO # 0.1 K/uL (0.0-0.2); BASO % 0.6 % (0.0-2.0); EOS # 0.3 K/uL (0.0-0.7); EOS % 3.3 % (0.0-4.0); LYMPH # 1.5 K/uL (1.0-4.3); LYMPH % 15.6 % (20.0-40.0); MEAN CORPUSCULAR HEMOGLOBIN 31.4 pg (27.0-31.0); MEAN CORPUSCULAR HGB CONC 35.3 g/dL (33.0-37.0); MEAN PLATELET VOLUME 7.8 fL (7.2-11.7); MONO # 1.2 K/uL (0.0-0.8); MONO % 12.2 % (0.0-10.0); NEUT # 6.7 K/uL (1.8-7.0); NEUT % 68.3 % (50.0-75.0); RBC 4.73 Mil/uL (4.40-5.90); RED CELL DISTRIBUTION WIDTH 13.1 % (11.5-14.5); WHITE BLOOD COUNT 9.8 K/uL (4.8-10.8)
[2017-08-22 08:46] LABS: HEMOGLOBIN 14.9 g/dL (12.0-18.0)
[2017-08-22 08:53] LABS: ALB/GLOB RATIO 1.2 (1.0-2.1); ALBUMIN 4.3 g/dL (3.5-5.0); ALT/SGPT 55 U/L (21-72); AST/SGOT 33 U/L (17-59); BLOOD UREA NITROGEN 19 mg/dL (9-20); CALCIUM 9.6 mg/dl (8.6-10.4); GFR AFRICAN-AMERICAN > 60; GFR NON-AFRICAN AMERICAN > 60
[2017-08-22 08:57] LABS: BARBITURATES, UR NEGATIVE (NEGATIVE); BENZODIAZEPINES, UR NEGATIVE (NEGATIVE); PHENCYCLIDINE, UR NEGATIVE (NEGATIVE)
[2017-08-22] MEDS ORDERED: Potassium Chloride 20 mEq ER Tab PO STA (09:22)
--- NOTE | 2017-08-22 09:24 | C.PDOC ---
History Of Present Illness 46yo male, comes to ER stating he is depressed and has been having suicidal ideation for the past 2 days. He also admits to heroin use. Patient denies any medical complaints. Time Seen by Provider: 08/22/17 08:07 Chief Complaint (Nursing): Psychiatric Evaluation History Per: Patient History/Exam Limitations: no limitations Onset/Duration Of Symptoms: Days Current Symptoms Are (Timing): Still Present Modifying Factor(s): Narcotics Associated Symptoms: Depression, Suicidal Thoughts. denies: Suicidal Plan Past Medical History Reviewed: Historical Data, Nursing Documentation, Vital Signs Vital Signs: Last Vital Signs Temp 98.4 F 08/22/17 08:02 Pulse 100 H 08/22/17 08:02 Resp 20 08/22/17 08:02 BP 133/86 08/22/17 08:02 Pulse Ox 96 08/22/17 10:03 - Medical History PMH: Asthma, Pneumonia (''Walking'') Denies: Diabetes, Hepatitis, HIV, HTN, Seizures, Sexually Transmitted Disease Surgical History: Appendectomy - [facility] Procedures GROUP PSYCHOTHERAPY (04/23/16) INDIV PSYCHOTHERAPY FOR SUBSTANCE ABUSE TREATMENT, SUPPORT (04/23/16) INDIVIDUAL PSYCHOTHERAPY, SUPPORTIVE (04/23/16) INSPECTION OF LOWER INTESTINAL TRACT, ENDO (04/23/16) MEDICATION MANAGEMENT (04/23/16) MEDS MGMT FOR SUBSTANCE ABUSE TREATMENT, OTH REPL MED (04/23/16) Family History: States: Unknown Family Hx - Social History Hx Alcohol Use: Yes Hx Substance Use: Yes - Immunization History Hx Tetanus Toxoid Vaccination: No Hx Influenza Vaccination: No (2015) Hx Pneumococcal Vaccination: No Review Of Systems Except As Marked, All Systems Reviewed And Found Negative. Constitutional: Negative for: Fever, Chills Cardiovascular: Negative for: Chest Pain Respiratory: Negative for: Shortness of Breath Gastrointestinal: Negative for: Abdominal Pain Psych: Positive for: Depression, Suicidal ideation Physical Exam - Physical Exam Appears: Non-toxic Skin: Normal Color Head: Normacephalic Eye(s): bilateral: Normal Inspection Neck: Normal ROM, Supple Chest: Symmetrical Cardiovascular: Rhythm Regular Respiratory: Normal Breath Sounds Gastrointestinal/Abdominal: Normal Exam, Soft, No Tenderness Back: Normal Inspection Extremity: Normal ROM, No Pedal Edema Neurological/Psych: Oriented x3 ED Course And Treatment - Laboratory Results Result Diagrams: 08/22/17 08:34 08/22/17 08:34 O2 Sat by Pulse Oximetry: 96 (RA) Pulse Ox Interpretation: Normal Medical Decision Making Medical Decision Making: Impression: Depression, suicidal ideation Plan: -- Labs -- UDS -- Urinalysis Time: 922 Labs reviewed, patient given KCl 40meq PO Time: 931 Patient medically cleared Time: [address] Real for depression. Disposition Discussed With Dr.: Ollie Real Doctor Will See Patient In The: Hospital Counseled Patient/Family Regarding: Studies Performed, Diagnosis - Disposition Disposition: HOSPITALIZED Disposition Time: 10:03 Condition: FAIR Forms: [facility] (Mongolian) - Clinical Impression Clinical Impression: Major depression - Scribe Statement The provider has reviewed the documentation as recorded by the Lorelei Lay Provider Attestation: All medical record entries made by the Lorelei were at my direction and personally dictated by me. I have reviewed the chart and agree that the record accurately reflects my personal performance of the history, physical exam, medical decision making, and the department course for this patient. I have also personally directed, reviewed, and agree with the discharge instructions and disposition.
[2017-08-22 09:25] LABS: OPIATES, UR POSITIVE (NEGATIVE)
[2017-08-22] MEDS ORDERED: Potassium Chloride 20 mEq ER Tab PO ONE (09:33)
[2017-08-22] MEDS ORDERED: Potassium Chloride 20 mEq ER Tab PO SCH (10:00)
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
--- NOTE | 2017-08-22 14:09 | PCM.BM ---
<ZevTamirKalie - Last Filed: 08/22/17 14:08> Treatment Plan Problems - Problems identified on initial assessmt Depression Date Initiated: 08/22/17 Time Initiated: 14:08 Assessment reference: NA Status: Active substance abuse Date Initiated: 08/22/17 Time Initiated: 14:09 Assessment reference: NA Status: Active <Katt Swift - Last Filed: 08/22/17 21:25> - Diagnosis (1) Major depression Status: Acute Interventions: 08/22/17 21:25 * Assess/adjust medications daily and /or as needed * See patient on an individual basis 7x/week to assess symptoms of depression * Monitor for side effects & effectiveness of medications * (2) Opioid abuse Status: Acute Interventions: 08/22/17 21:25 * Assess 7x/week regarding severity of withdrawal * Educate regarding risks, benefits, side effects and alternatives of medications * Use Motivational Interviewing for abstinence * Use CBT for relapse prevention * Medication management for withdrawal symptoms * Encourage medication assisted treatment * <Elizabeth Galo - Last Filed: 08/24/17 10:52> Family Contact Family involvement: Famliy/SO not involved - Goals for Treatment Patient goals for treatment: "I want to go home." Discharge/Continuing Care - Education Needs Education Needs: Patient Medication, Patient Coping Skills - Discharge Discharge Criteria: Tolerates medication w/o severe side effects, Reduction of target symptoms Discharge to:: Home - Treatment Team Participation Discussed with Family/SO: No Was Patient/Family/SO present at Treatment Team Meeting: Yes
[2017-08-23 08:26] LABS: BLOOD UREA NITROGEN 18 mg/dL (9-20); CALCIUM 9.1 mg/dl (8.6-10.4); GFR AFRICAN-AMERICAN > 60; GFR NON-AFRICAN AMERICAN > 60
[2017-08-23] MEDS ORDERED: Potassium Chloride 20 mEq ER Tab PO ONE (11:00)
[2017-08-24 06:38] VITALS: RESP 20
--- NOTE | 2017-08-24 14:20 | PCM.PYCHPN ---
Psychiatric Progress Note - Psychiatric Progress Note Patient seen today, length of contact: 17 min Patient Chief Complaint: "I am a little better" Problems Identified/Issues Discussed: The pt is seen, chart reviewed, case discussed with staff. The pt is compliant with medications and reports no side-effects. Symptoms are improving but needs more time to stabilize. After care discussed, support and psychoeducation given. Medication Change: Yes (meds adjusted daily) Medical Record Reviewed: Yes Mental Status Examination - Cognitive Function Orientation: Person, Place, Situation, Time Memory: Intact Attention: WNL Concentration: Poor Association: WNL Fund of Knowledge: WNL - Mood Mood: Depressed - Affect Affect: Constricted - Speech Speech: Appropriate - Formal Thought Process Formal Thought Process: No Impairment - Suicidal Ideation Suicidal Ideation: No - Homicidal Ideation Homicidal Ideation: No Goal/Treatment Plan - Goal/Treatment Plan Need for Continued Stay: Discharge may exacerbated symptoms, Severe functional impairment Progress Toward Problem(s) and Goals/Treatment Plan: Methadone taper Cymbalta for depression, increased As need medications All risks, benefits and alternatives of the meds discussed, and the pt agreed and understood. Attend groups and activities Individual therapy daily Psychoeducation and support daily Encourage compliance with meds and after care Refer to outpatient program Teach healthy lifestyle methods, i.e. diet, exercise, meditation Smoking cessation and patch if needed Estimated Date of D/C: 08/27/17
--- NOTE | 2017-08-24 21:32 | PCM.PYCHPN ---
Psychiatric Progress Note - Psychiatric Progress Note Patient seen today, length of contact: 16 min Patient Chief Complaint: "Tired" Problems Identified/Issues Discussed: The pt is seen, chart reviewed, case discussed with staff. Support given, CBT and [place] used briefly No new symptoms reported, improving slowly and needs more time No SEs from medications, risks discussed. [place] [facility] [place] Change: Yes (meds adjusted daily) Medical Record Reviewed: Yes Mental Status Examination - Cognitive Function Orientation: Person, Place, Situation, Time Memory: Intact Attention: WNL Concentration: Poor Association: WNL Fund of Knowledge: WNL - Mood Mood: Depressed - Affect Affect: Constricted - Speech Speech: Appropriate - Formal Thought Process Formal Thought Process: No Impairment - Suicidal Ideation Suicidal Ideation: No - Homicidal Ideation Homicidal Ideation: No Goal/Treatment Plan - Goal/Treatment Plan Need for Continued Stay: Discharge may exacerbated symptoms, Severe functional impairment Progress Toward Problem(s) and Goals/Treatment Plan: Methadone taper Cymbalta for depression, increased As need medications All risks, benefits and alternatives of the meds discussed, and the pt agreed and understood. Attend groups and activities Individual therapy daily Psychoeducation and support daily Encourage compliance with meds and after care Refer to outpatient program Teach healthy lifestyle methods, i.e. diet, exercise, meditation Smoking cessation and patch if needed Estimated Date of D/C: 08/27/17
--- NOTE | 2017-08-25 13:42 | PCM.PYCHPN ---
Psychiatric Progress Note - Psychiatric Progress Note Patient seen today, length of contact: 16 min Patient Chief Complaint: "I am still depressed" Problems Identified/Issues Discussed: The pt is seen, chart reviewed, case discussed with staff. The pt is compliant with medications and reports no side-effects. Symptoms are improving slowly, but needs more time to stabilize. Still c/o depressed mood, "weird feeling" in his body, which is likely due to withdrawals Support given, psycho-education provided. After care discussed. [facility] [place] Medication Change: Yes (Cymbalta increased to 90 mg) Medical Record Reviewed: Yes Mental Status Examination - Cognitive Function Orientation: Person, Place, Situation, Time Memory: Intact Attention: WNL Concentration: Poor Association: WNL Fund of Knowledge: WNL - Mood Mood: Depressed - Affect Affect: Constricted - Speech Speech: Appropriate - Formal Thought Process Formal Thought Process: No Impairment - Suicidal Ideation Suicidal Ideation: No - Homicidal Ideation Homicidal Ideation: No Goal/Treatment Plan - Goal/Treatment Plan Need for Continued Stay: Discharge may exacerbated symptoms, Severe functional impairment Progress Toward Problem(s) and Goals/Treatment Plan: Methadone taper Cymbalta for depression, increased As need medications All risks, benefits and alternatives of the meds discussed, and the pt agreed and understood. Attend groups and activities Individual therapy daily Psychoeducation and support daily Encourage compliance with meds and after care Refer to outpatient program Teach healthy lifestyle methods, i.e. diet, exercise, meditation Smoking cessation and patch if needed Estimated Date of D/C: 08/29/17 If changed, why: still depressed
--- NOTE | 2017-08-26 19:50 | PCM.PYCHPN ---
Psychiatric Progress Note - Psychiatric Progress Note Patient seen today, length of contact: 17 min Patient Chief Complaint: "I am the same" Problems Identified/Issues Discussed: The pt is seen, chart reviewed, case discussed with staff. Support given, CBT and [place] used briefly No new symptoms reported, improving slowly and needs more time Still depressed, anxious and has mild wdw sxs No SEs from medications, risks discussed. Medication Change: Yes (Cymbalta increased to 90 mg) Medical Record Reviewed: Yes Mental Status Examination - Cognitive Function Orientation: Person, Place, Situation, Time Memory: Intact Attention: WNL Concentration: Poor Association: WNL Fund of Knowledge: WNL - Mood Mood: Depressed - Affect Affect: Constricted - Speech Speech: Appropriate - Formal Thought Process Formal Thought Process: No Impairment - Suicidal Ideation Suicidal Ideation: No - Homicidal Ideation Homicidal Ideation: No Goal/Treatment Plan - Goal/Treatment Plan Need for Continued Stay: Discharge may exacerbated symptoms, Severe functional impairment Progress Toward Problem(s) and Goals/Treatment Plan: Methadone taper Cymbalta for depression, increased As need medications All risks, benefits and alternatives of the meds discussed, and the pt agreed and understood. Attend groups and activities Individual therapy daily Psychoeducation and support daily Encourage compliance with meds and after care Refer to outpatient program Teach healthy lifestyle methods, i.e. diet, exercise, meditation Smoking cessation and patch if needed Estimated Date of D/C: 08/29/17
[2017-08-27 08:44] LABS: BLOOD UREA NITROGEN 13 mg/dL (9-20); CALCIUM 8.7 mg/dl (8.6-10.4); GFR AFRICAN-AMERICAN > 60; GFR NON-AFRICAN AMERICAN > 60
--- NOTE | 2017-08-27 13:31 | PCM.PYCHPN ---
Psychiatric Progress Note - Psychiatric Progress Note Patient seen today, length of contact: 15 min Patient Chief Complaint: "I am not well" Problems Identified/Issues Discussed: Mr. Sweet is seen, chart reviewed, case discussed with staff. The pt is compliant with medications. He says his sleep is "on and off" and he still feels depressed. Symptoms are improving but needs more time to stabilize. Support given, psycho-education provided. Discussed addition of HCTZ to treatment. Medication Change: Yes (hctz) Medical Record Reviewed: Yes Mental Status Examination - Cognitive Function Orientation: Person, Place, Situation, Time Memory: Intact Attention: WNL Concentration: Poor Association: WNL Fund of Knowledge: WNL - Mood Mood: Depressed - Affect Affect: Constricted - Speech Speech: Appropriate - Formal Thought Process Formal Thought Process: No Impairment - Suicidal Ideation Suicidal Ideation: No - Homicidal Ideation Homicidal Ideation: No Goal/Treatment Plan - Goal/Treatment Plan Need for Continued Stay: Discharge may exacerbated symptoms, Severe functional impairment Progress Toward Problem(s) and Goals/Treatment Plan: Methadone taper ending Cymbalta for depression, increased As need medications All risks, benefits and alternatives of the meds discussed, and the pt agreed and understood. Attend groups and activities Individual therapy daily Psychoeducation and support daily Encourage compliance with meds and after care Refer to outpatient program Teach healthy lifestyle methods, i.e. diet, exercise, meditation Smoking cessation and patch if needed Estimated Date of D/C: 08/29/17
--- NOTE | 2017-08-28 12:05 | PCM.PYCHPN ---
Psychiatric Progress Note - Psychiatric Progress Note Patient seen today, length of contact: 15 min Patient Chief Complaint: "I am a little better" Problems Identified/Issues Discussed: Mr. Sweet is seen, chart reviewed, case discussed with staff. The pt is compliant with medications and pt reports that he did not sleep well last night. He says his mood has been up and down lately. He denies suicidal ideations. Ostensibly, he remains in bed most of the day. Symptoms are improving but needs more time to stabilize. Pt attends groups and activities. Support given, psycho-education provided. After care discussed. Medication Change: Yes (remeron for depression) Medical Record Reviewed: Yes Mental Status Examination - Cognitive Function Orientation: Person, Place, Situation, Time Memory: Intact Attention: WNL Concentration: Poor Association: WNL Fund of Knowledge: WNL - Mood Mood: Depressed - Affect Affect: Constricted - Speech Speech: Appropriate - Formal Thought Process Formal Thought Process: No Impairment - Suicidal Ideation Suicidal Ideation: No - Homicidal Ideation Homicidal Ideation: No Goal/Treatment Plan - Goal/Treatment Plan Need for Continued Stay: Discharge may exacerbated symptoms, Severe functional impairment Progress Toward Problem(s) and Goals/Treatment Plan: Methadone taper ending Cymbalta for depression, increased As need medications All risks, benefits and alternatives of the meds discussed, and the pt agreed and understood. Attend groups and activities Individual therapy daily Psychoeducation and support daily Encourage compliance with meds and after care Refer to outpatient program Teach healthy lifestyle methods, i.e. diet, exercise, meditation Smoking cessation and patch if needed Estimated Date of D/C: 08/29/17
--- NOTE | 2017-08-29 12:55 | PCM.PYCHPN ---
Psychiatric Progress Note - Psychiatric Progress Note Patient seen today, length of contact: 16 min Patient Chief Complaint: "I am still suicidal" Problems Identified/Issues Discussed: The pt is seen, chart reviewed, case discussed with staff. The pt is compliant with medications and reports no side-effects. Symptoms are improving but needs more time to stabilize. He has vague SI but no plan, urge or intention, contracts for safety. Pt attends groups and activities. Support given, psycho-education provided. After care discussed. Medication Change: Yes (remeron for depression) Medical Record Reviewed: Yes Mental Status Examination - Cognitive Function Orientation: Person, Place, Situation, Time Memory: Intact Attention: WNL Concentration: Poor Association: WNL Fund of Knowledge: WNL - Mood Mood: Depressed - Affect Affect: Constricted - Speech Speech: Appropriate - Formal Thought Process Formal Thought Process: No Impairment - Suicidal Ideation Suicidal Ideation: No - Homicidal Ideation Homicidal Ideation: No Goal/Treatment Plan - Goal/Treatment Plan Need for Continued Stay: Discharge may exacerbated symptoms, Severe functional impairment Progress Toward Problem(s) and Goals/Treatment Plan: Methadone taper ended Cymbalta for depression, increased Remeron increased As need medications All risks, benefits and alternatives of the meds discussed, and the pt agreed and understood. Attend groups and activities Individual therapy daily Psychoeducation and support daily Encourage compliance with meds and after care Refer to outpatient program Teach healthy lifestyle methods, i.e. diet, exercise, meditation Smoking cessation and patch if needed Estimated Date of D/C: 08/31/17 If changed, why: He says he cannot be alone at home due to SI
--- NOTE | 2017-08-30 14:17 | PCM.PYCHPN ---
Psychiatric Progress Note - Psychiatric Progress Note Patient seen today, length of contact: 16 min Patient Chief Complaint: "Depressed" Problems Identified/Issues Discussed: The pt is seen, chart reviewed, case discussed with staff. The pt is compliant with medications and reports no side-effects. Symptoms are improving but needs more time to stabilize. He says he is better than before but doesn't feel safe "being outside." He will have his friend yesterday and relies on that support No active suicide plan or intention No SEs from medications. Medication Change: Yes Medical Record Reviewed: Yes Mental Status Examination - Cognitive Function Orientation: Person, Place, Situation, Time Memory: Intact Attention: WNL Concentration: Poor Association: WNL Fund of Knowledge: WNL - Mood Mood: Depressed - Affect Affect: Constricted - Speech Speech: Appropriate - Formal Thought Process Formal Thought Process: No Impairment - Suicidal Ideation Suicidal Ideation: No - Homicidal Ideation Homicidal Ideation: No Goal/Treatment Plan - Goal/Treatment Plan Need for Continued Stay: Discharge may exacerbated symptoms, Severe functional impairment Progress Toward Problem(s) and Goals/Treatment Plan: Methadone taper ended Cymbalta for depression, increased Remeron increased As need medications All risks, benefits and alternatives of the meds discussed, and the pt agreed and understood. Attend groups and activities Individual therapy daily Psychoeducation and support daily Encourage compliance with meds and after care Refer to outpatient program Teach healthy lifestyle methods, i.e. diet, exercise, meditation Smoking cessation and patch if needed Estimated Date of D/C: 08/31/17
[2017-08-31 06:19] VITALS: BP 100/64; PULSE 69; TEMP 97.5; O2SAT 96
--- NOTE | 2017-08-31 09:54 | PCM.PYCHDC ---
Mental Status Examination - Mental Status Examination Orientation: Person, Place, Situation, Time Memory: Intact Mood: Anxious Affect: Constricted Speech: Appropriate Attention: WNL Concentration: WNL Association: WNL Fund of Knowledge: WNL Formal Thought Process: No Impairment Suicidal Ideation: No Current Homicidal Ideation?: No Discharge Summary - Discharge Note Reason for Hospitalization: Feeling depressed, suicidal Consultations:: List each consultation separately and include: 1. Reason for request. 2. Findings. 3. Follow-up Summary of Hospital Course include:: 1. Description of specific treatment plan utilized for patients during their course of treatmen. 2. Summarize the time- course for resolution of acute symptoms and/or regressed behaviors. 3. Describe issues identified and worked on during hospitalization. 4. Describe medication utilized. 5. Describe medical problems identified and treated. 6. Reassessment of suicide risk Summary of Hospital Course: Seen today, chart reviewed, case discussed with the team On admission: Mr. Sweet is a 46 year old man who is single with two children and is currently living with a friend. He brought himself to the hospital because he wanted to hurt himself. He denies it now but still has depressive sxs. No himanshu or psychosis elicited. Pt has struggled with depression for a few years, and the latest episode of depression started a few weeks ago. He relapsed on heroin recently, snorting more than a few bags/day, as a way to medicate his depression, he claims. He reports withdrawal symptoms. He had been using heroin for a couple of years. He was clean for the past year. he was in our unit not too long ago with similar sxs. Past Psychiatric history is positive for rehab twice and detox programs 2-3 times. Medical hx: Asthma Family psych hx: not known Hospital course: The pt was admitted and started on treatment with psychotherapy, support, psychoeducation and medications. [place] and CBT used. The pt attended groups and activities, as well as milieu therapy. All the risks and benefits of medications are discussed and the patient understood and agreed. The pt improved with the treatments provided. After care discussed with the patient. He will attend [facility] [place] program - Final Diagnosis (DSM 5) Condition upon Discharge: IMPROVED DSM 5: Major Depressive d/o - recurrent, severe Opioid use disorder, severe opioid withdrawal Major Depressive Disorder PTSD Disposition: HOME/ ROUTINE Follow-up Treatment Plan: Continue below medications after discharge. Follow after care plan as discussed. Use relapse prevention skills Return to ER or call 911 if suicidal, homicidal or symptoms relapse. Stay away from stress, alcohol and drugs. See primary doctor regularly and get labs. Prescriptions/Medication Reconciliation: DULoxetine [Cymbalta] 90 mg PO DAILY #90 ecc Gabapentin [Neurontin] 300 mg PO TID #90 cap hydroCHLOROthiazide [Microzide] 25 mg PO DAILY #30 cap hydrOXYzine HCl [Atarax] 50 mg PO DAILY PRN #30 tab PRN Reason: Anxiety Mirtazapine [Remeron] 30 mg PO HS #30 tab traZODone [Desyrel] 100 mg PO HS PRN #30 tab PRN Reason: Insomnia
== END 2017-08-31 11:15 | disposition home or self-care (01) | DRG 744 ==
LOC: C.ER 07:56 → C.5E 10:02
PROC: GZHZZZZ Group Psychotherapy (ICD-10-PCS; principal; 2017-08-22)
DX: F11.23 Opioid dependence with withdrawal (principal); F33.2 Major depressive disorder, recurrent severe without psychotic features; J45.909 Unspecified asthma, uncomplicated; F43.10 Post-traumatic stress disorder, unspecified; R45.851 Suicidal ideations